=== PATIENT | female | born 1990 | race Caucasian/White ===

== ENCOUNTER 2016-07-14 18:20 | Inpatient (IN) | payer MEDICAID ==
[2016-07-14] MEDS ORDERED: ASPIRIN 81 MG TABLET, CHEWABLE PO ONE (18:24)
--- NOTE | 2016-07-14 18:26 | ER Document Report ---
ED Medical Screen (RME) - General Stated Complaint: CHEST PAIN Mode of Arrival: Ambulatory Information source: Patient Notes: Patient presents to the emergency department with left-sided chest pain since yesterday. Denies other symptoms such as fever vomiting diarrhea. Denies history of cardiac disease. Reports takes control no recent trip, denies trauma, reports smoked years ago. RR even/ unlabored. I have greeted and performed a rapid initial assessment of this patient. A comprehensive ED assessment and evaluation of the patient, analysis of test results and completion of the medical decision making process will be conducted by additional ED providers.. TRAVEL OUTSIDE OF THE [place] IN LAST 30 DAYS: No - Related Data Allergies/Adverse Reactions: No Known Drug Allergies Allergy (Verified 05/15/12 10:13) Past Medical History Pulmonary Medical History: Denies: Hx Asthma Past Surgical History: Reports: Hx Cholecystectomy, Hx Tonsillectomy, Hx Tubal Ligation - Immunizations Immunizations up to date: Yes Hx Diphtheria, Pertussis, Tetanus Vaccination: Yes
--- NOTE | 2016-07-14 19:59 | EKG REPORT ---
SEVERITY:- OTHERWISE NORMAL ECG - SINUS RHYTHM BORDERLINE LEFT AXIS DEVIATION : Confirmed by: Silvestre Estrella MD 14-Jul-2016 19:58:17
--- NOTE | 2016-07-14 23:16 | ER Document Report ---
ED General - General Chief Complaint: Chest Pain Stated Complaint: CHEST PAIN Mode of Arrival: Ambulatory Information source: Patient Notes: This is a 26-year-old female who presents to the ER for evaluation of left- sided chest pain that developed yesterday at rest. She states that the pain as a dull ache in the left anterior chest. There is no radiation of the pain. She has had no diaphoresis, nausea, or vomiting. She does have some pleuritic component to the pain along with some shortness of breath. She also states that it hurts to move certain ways. She denies cough or congestion or recent illness. No recent trauma. No prior history of similar symptoms. She has had no lower extremity edema or pain. She does take oral contraceptives. TRAVEL OUTSIDE OF THE [place] IN LAST 30 DAYS: No - Related Data Allergies/Adverse Reactions: No Known Drug Allergies Allergy (Verified 07/14/16 18:25) Home Medications: Current Home Medications Unobtainable [Unobtainable] 07/15/16 [History] Past Medical History - General Information source: Patient - Social History Smoking Status: Never Smoker Chew tobacco use (# tins/day): No Frequency of alcohol use: None Drug Abuse: None Family History: Reviewed & Not Pertinent Patient has suicidal ideation: No Patient has homicidal ideation: No - Past Medical History Cardiac Medical History: Reports: Hx Hypercholesterolemia Pulmonary Medical History: Denies: Hx Asthma Endocrine Medical History: Reports: Hx Hyperthyroidism Renal/ Medical History: Denies: Hx Peritoneal Dialysis Psychiatric Medical History: Reports: Hx Anxiety, Hx Depression Past Surgical History: Reports: Hx Cholecystectomy, Hx Tonsillectomy, Hx Tubal Ligation - Immunizations Immunizations up to date: Yes Hx Diphtheria, Pertussis, Tetanus Vaccination: Yes Review of Systems - Review of Systems Notes: REVIEW OF SYSTEMS: CONSTITUTIONAL : Denies fever, chills, or sweats. Denies recent illness. EENT: Denies eye, ear, throat, or mouth pain or symptoms. Denies nasal or sinus congestion. CARDIOVASCULAR: As per history of present illness RESPIRATORY: Denies cough, cold, or chest congestion. Otherwise as per history of present illness GASTROINTESTINAL: Denies abdominal pain. Denies nausea, vomiting, or diarrhea. GENITOURINARY: Denies difficulty urinating, painful urination, burning, frequency, or blood in urine. FEMALE GENITOURINARY: Denies vaginal bleeding, abnormal or irregular periods. LMP: beginning of June MUSCULOSKELETAL: Denies neck or back pain or joint pain or swelling. SKIN: Denies rash or skin lesions. HEMATOLOGIC : Denies easy bruising or bleeding. LYMPHATIC: Denies swollen, enlarged glands. NEUROLOGICAL: Denies altered mental status or loss of consciousness. Denies headache. PSYCHIATRIC: Denies anxiety or stress or depression. ALL OTHER SYSTEMS REVIEWED AND NEGATIVE. Physical Exam - Vital signs Vitals: Temp Pulse Resp BP Pulse Ox 98.3 F 105 H 20 134/81 H 100 07/14/16 18:25 07/14/16 18:25 07/14/16 18:25 07/14/16 18:25 07/14/16 18:25 - Notes Notes: PHYSICAL EXAMINATION: GENERAL: Well-appearing, well-nourished and in no acute distress. Pleasant and conversant with no conversational dyspnea. HEAD: Atraumatic, normocephalic. EYES: Pupils equal round and reactive to light, extraocular movements intact, sclera anicteric, conjunctiva are normal. ENT: nares patent, oropharynx clear without exudates. Moist mucous membranes. NECK: Normal range of motion, supple without lymphadenopathy LUNGS: Breath sounds clear to auscultation bilaterally and equal. No wheezes rales or rhonchi. HEART: Regular rate and rhythm without murmurs CHEST: Mild left anterior chest wall TTP ABDOMEN: Soft, nontender, normoactive bowel sounds. No guarding, no rebound. No masses appreciated. EXTREMITIES: Normal range of motion, no pitting or edema. No cyanosis. NEUROLOGICAL: Cranial nerves grossly intact. Normal speech. No gross focal motor or sensory deficits appreciated. PSYCH: Normal mood, normal affect. SKIN: Warm, Dry, normal turgor, no rashes or lesions noted. Course - Re-evaluation Re-evalutation: 07/15/16 02:20 CT angiogram demonstrates bilateral acute pulmonary emboli in the upper and lower lobes. Also there is evidence of lingula infarct. Patient will be started on heparin protocol. I did page the hospitalist Dr. Johnson for admission at this time. 07/15/16 02:43 Patient is a primary care patient of Dr. Lo. I discussed the case with Dr. Lo who will admit the patient to telemetry. - Vital Signs Vital signs: Temp Pulse Resp BP Pulse Ox 98.3 F 94 15 110/72 97 07/14/16 18:25 07/15/16 03:51 07/15/16 06:01 07/15/16 06:01 07/15/16 06:01 - Laboratory Result Diagrams: 07/15/16 03:45 07/14/16 23:32 Laboratory results interpreted by me: 07/14/16 07/14/16 07/15/16 23:32 23:32 02:10 D-Dimer 1.51 H ALT 60 H Urine Protein 30 H Urine Glucose (UA) 50 H Urine Blood MODERATE H Ur Leukocyte Esterase SMALL H - EKG Interpretation by Me Additional EKG results interpreted by me: 07/14/16 23:16 EKG at 1836 shows normal sinus rhythm with a rate of 97. There are nonspecific T-wave changes. Borderline left axis deviation. There are no ST segment elevation or depressions. Critical Care Note - Critical Care Note Total time excluding time spent on procedures (mins): 30 - minutes of critical care time spent in direct contact evaluating and reevaluating the patient, treating symptoms, reviewing labs and studies and speaking with family and consultants excluding any procedures Discharge - Discharge Clinical Impression: Bilateral pulmonary embolism, Pulmonary infarction Condition: Stable Disposition: ADMITTED INPATIENT Admitting Provider: [facility] Unit Admitted: [facility]
[2016-07-14 23:58] LABS: ABSOLUTE EOSINOPHILS # (AUTO) 0.1 10^3/uL (0.0-0.6); ABSOLUTE LYMPHOCYTES (AUTO) 1.8 10^3/uL (0.5-4.7); ABSOLUTE MONOCYTES (AUTO) 0.7 10^3/uL (0.1-1.4); BASOPHILS % (AUTO) 0.1 % (0-2); EOSINOPHILS % (AUTO) 1.6 % (0-6); HEMATOCRIT 37.4 % (36.0-47.0); HGB HCT DIFFERENCE 1.6; LYMPHOCYTES % (AUTO) 27.3 % (13-45); MEAN CORPUSCULAR HEMOGLOBIN 32.9 pg (27.0-33.4); MEAN CORPUSCULAR HGB CONC 34.9 g/dL (32.0-36.0); MEAN CORPUSCULAR VOLUME 94 fl (80-97); MONOCYTES % (AUTO) 9.9 % (3-13); RED BLOOD COUNT 3.96 10^6/uL (3.72-5.28); RED CELL DISTRIBUTION WIDTH 12.1 % (11.5-14.0); SEGMENTED NEUTROPHILS % (AUTO) 61.1 % (42-78); WHITE BLOOD COUNT 6.6 10^3/uL (4.0-10.5)
[2016-07-15 00:17] LABS: ALANINE AMINOTRANSFERASE 60 U/L (9-52); ALBUMIN 4.5 g/dL (3.5-5.0); ALKALINE PHOSPHATASE 43 U/L (38-126); ANION GAP 13 (5-19); ASPARTATE AMINO TRANSFERASE 36 U/L (14-36); BILIRUBIN,DIRECT 0.3 mg/dL (0.0-0.4); BILIRUBIN,TOTAL 1.2 mg/dL (0.2-1.3); BLOOD UREA NITROGEN 10 mg/dL (7-20); CALCIUM 9.7 mg/dL (8.4-10.2); CARBON DIOXIDE 26 mmol/L (22-30); CHLORIDE 103 mmol/L (98-107); CREATINE KINASE 105 U/L (30-135); CREATININE RESULT 0.65 mg/dL (0.52-1.25); GLUCOSE 95 mg/dL (75-110); POTASSIUM 3.9 mmol/L (3.6-5.0); SODIUM 142.2 mmol/L (137-145)
[2016-07-15 00:18] LABS: PROTHROMBIN TIME 13.5 SEC (11.4-15.4)
[2016-07-15 00:21] LABS: D-DIMER 1.51 ug/mL (0.00-0.50)
[2016-07-15 00:29] LABS: CREATINE KINASE MB 0.66 ng/mL (<4.55)
[2016-07-15 00:32] LABS: TROPONIN I < 0.012 ng/mL
[2016-07-15] MEDS ORDERED: HEPARIN SOD (PORCINE) 1,000 UNIT/ML 10 ML VIAL IV ONE (02:12)
[2016-07-15] MEDS ORDERED: HEPARIN SOD (PORCINE) 1,000 UNIT/ML 10 ML VIAL IV PRN (02:12)
[2016-07-15 03:18] LABS: APPEARANCE,URINE SLIGHTLY-CLOUDY; BILIRUBIN,URINE NEGATIVE (NEGATIVE); GLUCOSE, URINE 50 mg/dL (NEGATIVE); KETONES,URINE NEGATIVE (NEGATIVE); LEUKOCYTE ESTERASE,URINE SMALL (NEGATIVE); NITRITE,URINE NEGATIVE (NEGATIVE); PROTEIN,URINE 30 mg/dL (NEGATIVE); URINE SPECIFIC GRAVITY 1.011; UROBILINOGEN,URINE NEGATIVE mg/dL (<2.0)
[2016-07-15] MEDS: HEPARIN SODIUM,PORCINE/D5W 250 ML IV PRN ×2 (03:20→19:05)
[2016-07-15 03:55] LABS: ABSOLUTE EOSINOPHILS # (AUTO) 0.1 10^3/uL (0.0-0.6); ABSOLUTE LYMPHOCYTES (AUTO) 1.7 10^3/uL (0.5-4.7); ABSOLUTE MONOCYTES (AUTO) 0.6 10^3/uL (0.1-1.4); ABSOLUTE NEUT (AUTO) 4.8 10^3/uL (1.7-8.2); BASOPHILS % (AUTO) 0.3 % (0-2); EOSINOPHILS % (AUTO) 1.8 % (0-6); HEMATOCRIT 35.8 % (36.0-47.0); HEMOGLOBIN 12.8 g/dL (12.0-15.5); HGB HCT DIFFERENCE 2.6; LYMPHOCYTES % (AUTO) 22.6 % (13-45); MEAN CORPUSCULAR HGB CONC 35.7 g/dL (32.0-36.0); MEAN CORPUSCULAR VOLUME 93 fl (80-97); MONOCYTES % (AUTO) 8.7 % (3-13); RED BLOOD COUNT 3.87 10^6/uL (3.72-5.28); SEGMENTED NEUTROPHILS % (AUTO) 66.6 % (42-78); WHITE BLOOD COUNT 7.3 10^3/uL (4.0-10.5)
[2016-07-15 05:09] LABS: PARTIAL THROMBOPLASTIN TIME > 235.0 SEC (23.5-35.8)
[2016-07-15] MEDS ORDERED: LORAZEPAM INJ 2 MG/1 ML VIAL IV ONE (05:09)
[2016-07-15] MEDS ORDERED: ACETAMINOPHEN 325 MG TABLET PO PRN (07:02)
[2016-07-15] MEDS ORDERED: ENOXAPARIN SODIUM INJ 30 MG/0.3 ML DISP.SYRIN SUBCUT SCH (08:00)
[2016-07-15] MEDS ORDERED: OXYCODONE-ACETAMINOPHEN 5-325 MG TABLET PO ONE (11:07)
--- NOTE | 2016-07-15 14:00 | PDOC H&P ---
History of Present Illness Admission Date/PCP: 07/15/16 07:02 ADALID SUAREZ MD Patient complains of: chest pain History of Present Illness: NUNU MIRELES is a 26 year old female pt came to er with c/o chest pain on left side and unable to take deep breath Past Medical History Cardiac Medical History: Reports: Hyperlipidema Pulmonary Medical History: Denies: Asthma Endocrine Medical History: Reports: Hypothyroidism Psychiatric Medical History: Reports: Depression, General Anxiety Disorder Past Surgical History Past Surgical History: Reports: Cholecystectomy, Tonsillectomy, Tubal Ligation Social History Smoking Status: Never Smoker Family History Family History: Reviewed & Not Pertinent Parental Family History Reviewed: Yes Children Family History Reviewed: Yes Sibling(s) Family History Reviewed.: Yes Medication/Allergy Home Medications: Unobtainable [Unobtainable] 07/15/16 Allergies/Adverse Reactions: No Known Drug Allergies Allergy (Verified 07/14/16 18:25) Review of Systems Constitutional: ABSENT: chills, fever(s), headache(s), weight gain, weight loss Eyes: ABSENT: visual disturbances Ears: ABSENT: hearing changes Cardiovascular: PRESENT: chest pain, dyspnea on exertion Respiratory: PRESENT: cough, dyspnea. ABSENT: hemoptysis Gastrointestinal: ABSENT: abdominal pain, constipation, diarrhea, hematemesis, hematochezia, nausea, vomiting Genitourinary: ABSENT: dysuria, hematuria Musculoskeletal: ABSENT: joint swelling Integumentary: ABSENT: rash, wounds Neurological: ABSENT: abnormal gait, abnormal speech, confusion, dizziness, focal weakness, syncope Psychiatric: ABSENT: anxiety, depression, homidical ideation, suicidal ideation Endocrine: ABSENT: cold intolerance, heat intolerance, menstrual abnormalities, polydipsia, polyuria Hematologic/Lymphatic: ABSENT: easy bleeding, easy bruising, lymphadenopathy Physical Exam Vital Signs: Temp Pulse Resp BP Pulse Ox 98.3 F 94 13 111/74 96 07/14/16 18:25 07/15/16 03:51 07/15/16 10:01 07/15/16 10:01 07/15/16 10:01 General appearance: PRESENT: no acute distress, well-developed, well-nourished Head exam: PRESENT: atraumatic, normocephalic Eye exam: PRESENT: conjunctiva pink, EOMI, PERRLA. ABSENT: scleral icterus Ear exam: PRESENT: normal external ear exam Mouth exam: PRESENT: moist, tongue midline Neck exam: PRESENT: full ROM. ABSENT: carotid bruit, JVD, lymphadenopathy, thyromegaly Respiratory exam: PRESENT: clear to auscultation pierre Cardiovascular exam: PRESENT: RRR. ABSENT: diastolic murmur, rubs, systolic murmur Pulses: PRESENT: normal dorsalis pedis pul, +2 pedal pulses bilateral Vascular exam: PRESENT: normal capillary refill GI/Abdominal exam: PRESENT: normal bowel sounds, soft. ABSENT: distended, guarding, mass, organolmegaly, rebound, tenderness Rectal exam: PRESENT: deferred Neurological exam: PRESENT: alert, awake, oriented to person, oriented to place , oriented to time, oriented to situation, CN II-XII grossly intact. ABSENT: motor sensory deficit Psychiatric exam: PRESENT: appropriate affect, normal mood. ABSENT: homicidal ideation, suicidal ideation Skin exam: PRESENT: dry, intact, warm. ABSENT: cyanosis, rash Results Impressions: Chest X-Ray 07/14/16 18:23 IMPRESSION: NO SIGNIFICANT RADIOGRAPHIC FINDING IN THE CHEST. Chest/Abdomen CTA 07/15/16 00:29 IMPRESSION: Acute pulmonary emboli in the bilateral upper and lower lobes. Pleura based wedge-shaped ground-glass opacity at the lingula, may represent a pulmonary infarct. Trace left pleural effusion. Mild bibasilar atelectasis. Assessment & Plan - Diagnosis (1) Bilateral pulmonary embolism Is this a current diagnosis for this admission?: YesPlan: start on heparin drip consult hematolgy for further evaution d/w pt and family on bed site possbile birthh control pill related (2) Pulmonary infarction Is this a current diagnosis for this admission?: YesPlan: will consult pulmonry cont heparin (3) Hyperlipemia Qualifiers: Hyperlipidemia type: unspecified Qualified Code(s): E78.5 - Hyperlipidemia, unspecified Is this a current diagnosis for this admission?: YesPlan: stable (4) Hypothyroidism Qualifiers: Hypothyroidism type: unspecified Qualified Code(s): E03.9 - Hypothyroidism, unspecified Is this a current diagnosis for this admission?: YesPlan: cont curr med (5) Depression Qualifiers: Depression Type: unspecified Qualified Code(s): F32.9 - Major depressive disorder, single episode, unspecified Is this a current diagnosis for this admission?: YesPlan: pt see psych for that (6) Menses, irregular Is this a current diagnosis for this admission?: YesPlan: pt also see professional poker player for that stop control now - Time Time Spent: 50 to 70 Minutes Medications reviewed and adjusted accordingly: Yes Anticipated discharge: Home Within: Other - Inpatient Certification Medical Necessity: Need Close Monitoring Due to Risk of Patient Decompensation, Need For Continuous Telemetry Monitoring Post Hospital Care: D/C Rpg Programmer Documentation - Plan Summary Plan Summary: start heparin drip/pain med consult hemtolgy/pulmonary
--- NOTE | 2016-07-15 14:44 | PDOC CONSULTATION ---
Consultation Consult Date: 07/15/16 Attending physician:: ADALID SUAREZ Consult reason:: pulmonary emboli History of Present Illness Admission Date/PCP: 07/15/16 07:02 ADALID SUAREZ MD History of Present Illness: NUNU MIRELES is a 26 year old female 26-year-old female plans increasing shortness of breath and inspiratory chest pain for the last 2 days presented to the emergency room had a CTA that showed pulmonary emboli. She admits that 2 weeks ago she has swelling in her right calf. She states that at her baseline she is and has noticed shortness of breath no dips and exertion and rarely coughs she has not had any hemoptysis or PPD status is negative dates unknown she has had no history of chronic lung disease as a child or adolescent. She admits to passive smoke as a child and as an adult. she is herself has smoked pack a day for 3 years but has not smoked in last 7 years she denies any occupational exposure to potential respiratory toxins no pets no recent travel. She normally has no chest pain sleeps on 2-3 pillows no PND no nocturnal cough and no edema. Paraspinal she snores occasionally but is very mild she denies restless sleep nocturia unrestful sleep but admits to some daytime somnolence. Past Medical History Cardiac Medical History: Reports: Hyperlipidema Pulmonary Medical History: Denies: Asthma Endocrine Medical History: Reports: Hyperthyroidism Psychiatric Medical History: Reports: Depression Past Surgical History Past Surgical History: Reports: Cholecystectomy, Tonsillectomy, Tubal Ligation Social History Information Source: Patient Lives with: Family Smoking Status: Former Smoker Passive smoke exposure as: Both Hx Recreational Drug Use: No Hx Prescription Drug Abuse: No Do you have pets?: No Have you had any respiratory illnesses as a child?: No Have you been exposed to any sick contacts recently?: No Have you had any recent respiratory illnesses?: No Have you travelled outside of [place] in the past 12 months?: No Family History Family History: Reviewed & Not Pertinent Parental Family History Reviewed: Yes Children Family History Reviewed: Yes Sibling(s) Family History Reviewed.: Yes Medication/Allergy Home Medications: Clonazepam [Klonopin] 1 mg PO BIDP PRN 07/15/16 Fenofibrate [Lofibra] 54 mg PO DAILY 07/15/16 Levocetirizine Dihydrochloride [Xyzal 5 mg Tablet] 5 mg PO QHS 07/15/16 Levothyroxine Sodium [Synthroid 0.1 mg Tablet] 0.1 mg PO DAILY 07/15/16 Lurasidone HCl [Latuda] 80 mg PO DAILY 07/15/16 Spironolactone [Aldactone 25 mg Tablet] 12.5 mg PO BID 07/15/16 Topiramate [Topamax] 50 mg PO QHS 07/15/16 Allergies/Adverse Reactions: No Known Drug Allergies Allergy (Verified 07/14/16 18:25) Physical Exam Vital Signs: Temp Pulse Resp BP Pulse Ox 98.3 F 94 13 111/74 96 07/14/16 18:25 07/15/16 03:51 07/15/16 10:01 07/15/16 10:01 07/15/16 10:01 General appearance: PRESENT: no acute distress, disheveled, obese, well- developed, well-nourished Head exam: PRESENT: atraumatic, normocephalic Eye exam: PRESENT: conjunctiva pale, EOMI Mouth exam: PRESENT: dry mucosa, neck supple Neck exam: ABSENT: carotid bruit, JVD, lymphadenopathy, thyromegaly Respiratory exam: PRESENT: decreased breath sounds, rhonchi, symmetrical, unlabored Cardiovascular exam: PRESENT: RRR, +S1, +S2 Pulses: PRESENT: normal radial pulses GI/Abdominal exam: PRESENT: normal bowel sounds, soft. ABSENT: distended, guarding, mass, organolmegaly, rebound, tenderness Rectal exam: PRESENT: deferred Gentrourinary exam: PRESENT: indwelling catheter Musculoskeletal exam: PRESENT: normal inspection Neurological exam: PRESENT: alert, awake Psychiatric exam: PRESENT: normal mood Skin exam: PRESENT: dry, intact, warm Results Impressions: Chest X-Ray 07/14/16 18:23 IMPRESSION: NO SIGNIFICANT RADIOGRAPHIC FINDING IN THE CHEST. Chest/Abdomen CTA 07/15/16 00:29 IMPRESSION: Acute pulmonary emboli in the bilateral upper and lower lobes. Pleura based wedge-shaped ground-glass opacity at the lingula, may represent a pulmonary infarct. Trace left pleural effusion. Mild bibasilar atelectasis. Assessment & Plan - Diagnosis (1) Bilateral pulmonary embolism Is this a current diagnosis for this admission?: YesPlan: DVT from right lower extremity progress to PE (2) Depression Qualifiers: Depression Type: unspecified Qualified Code(s): F32.9 - Major depressive disorder, single episode, unspecified Is this a current diagnosis for this admission?: Yes (3) Hypothyroidism Qualifiers: Hypothyroidism type: unspecified Qualified Code(s): E03.9 - Hypothyroidism, unspecified Is this a current diagnosis for this admission?: Yes (4) Pulmonary infarction Is this a current diagnosis for this admission?: YesPlan: wedge base pleural defect inspiratory chest pain
[2016-07-15] MEDS: OXYCODONE-ACETAMINOPHEN 5-325 MG TABLET PO PRN ×2 (16:11→22:12)
[2016-07-16 07:59] LABS: PROTHROMBIN TIME 13.8 SEC (11.4-15.4)
[2016-07-16 08:01] LABS: PARTIAL THROMBOPLASTIN TIME 56.3 SEC (23.5-35.8)
[2016-07-16 08:09] LABS: ANION GAP 12 (5-19); BLOOD UREA NITROGEN 8 mg/dL (7-20); CALCIUM 9.2 mg/dL (8.4-10.2); CARBON DIOXIDE 26 mmol/L (22-30); CHLORIDE 105 mmol/L (98-107); CREATINE KINASE 41 U/L (30-135); CREATININE RESULT 0.68 mg/dL (0.52-1.25); GLUCOSE 93 mg/dL (75-110); POTASSIUM 4.2 mmol/L (3.6-5.0)
--- NOTE | 2016-07-16 08:28 | PDOC CONSULTATION ---
Consultation Consult Date: 07/16/16 Attending physician:: ADALID SUAREZ Consult reason:: DVT/PE History of Present Illness Admission Date/PCP: 07/15/16 07:02 ADALID SUAREZ MD Patient complains of: RLE pain/ SOB/ CP History of Present Illness: 26-year-old female with recent history of DVT/PE. She remembers about 1-2 weeks ago, she began having right lower extremity cramping, pain. Then on Friday she began having shortness of breath and chest pain and it worsened over 24 hours, ultimately she presented to the ED, she had a CTA of the chest which indicated bilateral PE as well as pulmonary infarct, she had a lower extremity ultrasound yesterday and this indicated a right lower extremity DVT. She is currently on a heparin drip. She doesn't smoke, but is exposed to a lot of secondhand smoke, she is on oral contraceptive for control of severe irregular menses secondary to polycystic ovarian disease. She is not had any recent surgeries or injuries. She has not had a recent . Past Medical History Cardiac Medical History: Reports: Hyperlipidema Pulmonary Medical History: Denies: Asthma Endocrine Medical History: Reports: Hypothyroidism Psychiatric Medical History: Reports: Depression, General Anxiety Disorder Past Surgical History Past Surgical History: Reports: Cholecystectomy, Tonsillectomy, Tubal Ligation Social History Lives with: Family Smoking Status: Former Smoker Number of Years Smokin Last Time Smoked: 2009 Frequency of Alcohol Use: Occasional Hx Recreational Drug Use: No Drugs: None Hx Prescription Drug Abuse: No Family History Family History: Reviewed & Not Pertinent Parental Family History Reviewed: Yes Children Family History Reviewed: Yes Sibling(s) Family History Reviewed.: Yes Medication/Allergy Home Medications: Clonazepam [Klonopin] 1 mg PO BIDP PRN 07/15/16 Fenofibrate [Lofibra] 54 mg PO DAILY 07/15/16 Levocetirizine Dihydrochloride [Xyzal 5 mg Tablet] 5 mg PO QHS 07/15/16 Levothyroxine Sodium [Synthroid 0.1 mg Tablet] 0.1 mg PO DAILY 07/15/16 Lurasidone HCl [Latuda] 80 mg PO DAILY 07/15/16 Spironolactone [Aldactone 25 mg Tablet] 12.5 mg PO BID 07/15/16 Topiramate [Topamax] 50 mg PO QHS 07/15/16 Allergies/Adverse Reactions: No Known Drug Allergies Allergy (Verified 07/14/16 18:25) Review of Systems Constitutional: PRESENT: fatigue, weakness Cardiovascular: PRESENT: chest pain, dyspnea on exertion Respiratory: PRESENT: dyspnea Gastrointestinal: ABSENT: abdominal pain, constipation, diarrhea, hematemesis, hematochezia, nausea, vomiting Musculoskeletal: ABSENT: joint swelling Neurological: ABSENT: abnormal gait, abnormal speech, confusion, dizziness, focal weakness, syncope Physical Exam Vital Signs: Temp Pulse Resp BP Pulse Ox 98.0 F 76 16 106/60 98 07/16/16 03:49 07/16/16 07:00 07/16/16 03:49 07/16/16 03:49 07/16/16 03:49 Intake & Output 07/15/16 07/16/16 07/17/16 06:59 06:59 06:59 Intake Total 336 Output Total 1050 Balance -714 Weight 95.2 kg General appearance: PRESENT: no acute distress, well-developed, well-nourished Head exam: PRESENT: atraumatic, normocephalic Eye exam: PRESENT: conjunctiva pink, EOMI, PERRLA. ABSENT: scleral icterus Ear exam: PRESENT: normal external ear exam Mouth exam: PRESENT: moist, tongue midline Neck exam: ABSENT: carotid bruit, JVD, lymphadenopathy, thyromegaly Respiratory exam: PRESENT: clear to auscultation pierre. ABSENT: rales, rhonchi, wheezes Cardiovascular exam: PRESENT: RRR. ABSENT: diastolic murmur, rubs, systolic murmur Pulses: PRESENT: normal dorsalis pedis pul Vascular exam: PRESENT: normal capillary refill GI/Abdominal exam: PRESENT: normal bowel sounds, soft. ABSENT: distended, guarding, mass, organolmegaly, rebound, tenderness Rectal exam: PRESENT: deferred Extremities exam: PRESENT: full ROM. ABSENT: calf tenderness, clubbing, pedal edema Neurological exam: PRESENT: alert, awake, oriented to person, oriented to place , oriented to time, oriented to situation, CN II-XII grossly intact. ABSENT: motor sensory deficit Psychiatric exam: PRESENT: appropriate affect, normal mood. ABSENT: homicidal ideation, suicidal ideation Skin exam: PRESENT: dry, intact, warm. ABSENT: cyanosis, rash Results Laboratory Results: 07/16/16 07:26 07/16/16 07:26 Sodium 143.0 Potassium 4.2 Chloride 105 Carbon Dioxide 26 Anion Gap 12 BUN 8 Creatinine 0.68 Est GFR ( Amer) > 60 Est GFR (Non-Af Amer) > 60 Glucose 93 Calcium 9.2 Magnesium 2.0 07/16/16 07:26 Creatine Kinase 41 Impressions: Chest X-Ray 07/14/16 18:23 IMPRESSION: NO SIGNIFICANT RADIOGRAPHIC FINDING IN THE CHEST. Chest/Abdomen CTA 07/15/16 00:29 IMPRESSION: Acute pulmonary emboli in the bilateral upper and lower lobes. Pleura based wedge-shaped ground-glass opacity at the lingula, may represent a pulmonary infarct. Trace left pleural effusion. Mild bibasilar atelectasis. Assessment & Plan - Diagnosis (1) Bilateral pulmonary embolism Is this a current diagnosis for this admission?: YesPlan: Unknown cause, idiopathic at present, could be related to oral contraceptive plus secondhand smoke, we will do an extended panel of hypercoagulable workup as an outpatient. But for now we would switch her from heparin drip to Lovenox. We will decide in the next 24 hours whether to switch to one of the newer oral anticoagulants or keep her on Lovenox. (2) Right femoral vein DVT Qualifiers: Chronicity: acute Qualified Code(s): I82.411 - Acute embolism and thrombosis of right femoral vein Is this a current diagnosis for this admission?: YesPlan: Right lower extremity DVT, treatment as above, we'll monitor closely. - Time Time Spent: Greater than 70 Minutes Critical Time spent with patient: 35 or more minutes Anticipated discharge: Home Within: within 72 hours - Inpatient Certification Based on my medical assessment, after consideration of the patient's comorbidities, presenting symptoms, or acuity I expect that the services needed warrant INPATIENT care.: Yes I certify that my determination is in accordance with my understanding of Medicare's requirements for reasonable and necessary INPATIENT services [42 CFR 412.3e].: Yes Medical Necessity: Failure to Improve With Outpatient Therapy, Need for Pain Control, Risk of Complication if Not Cared For in Hospital
[2016-07-16] MEDS: OXYCODONE-ACETAMINOPHEN 5-325 MG TABLET PO PRN (09:11)
--- NOTE | 2016-07-16 09:23 | PDOC PROGRESS REPORT ---
Subjective Progress Note for:: 07/16/16 Subjective:: Patient is doing much better patients denied any chest pain except when she took a deep breath. Patient's currently on a heparin drip as per discussed with the hematology change to the Lovenox therapy and DC the heparin drip Physical Exam Vital Signs: Temp Pulse Resp BP Pulse Ox 97.9 F 68 15 112/52 L 98 07/16/16 08:26 07/16/16 08:26 07/16/16 08:26 07/16/16 08:26 07/16/16 08:26 Intake & Output 07/15/16 07/16/16 07/17/16 06:59 06:59 06:59 Intake Total 336 Output Total 1050 Balance -714 Weight 95.2 kg General appearance: PRESENT: no acute distress, well-developed, well-nourished Head exam: PRESENT: atraumatic, normocephalic Eye exam: PRESENT: conjunctiva pink, EOMI, PERRLA. ABSENT: scleral icterus Ear exam: PRESENT: normal external ear exam Mouth exam: PRESENT: moist, tongue midline Neck exam: PRESENT: full ROM. ABSENT: carotid bruit, JVD, lymphadenopathy, thyromegaly Respiratory exam: PRESENT: clear to auscultation pierre Cardiovascular exam: PRESENT: RRR. ABSENT: diastolic murmur, rubs, systolic murmur Pulses: PRESENT: normal dorsalis pedis pul, +2 pedal pulses bilateral Vascular exam: PRESENT: normal capillary refill GI/Abdominal exam: PRESENT: normal bowel sounds, soft. ABSENT: distended, guarding, mass, organolmegaly, rebound, tenderness Rectal exam: PRESENT: deferred Neurological exam: PRESENT: alert, awake, oriented to person, oriented to place , oriented to time, oriented to situation, CN II-XII grossly intact. ABSENT: motor sensory deficit Psychiatric exam: PRESENT: appropriate affect, normal mood. ABSENT: homicidal ideation, suicidal ideation Skin exam: PRESENT: dry, intact, warm. ABSENT: cyanosis, rash Results Laboratory Results: 07/16/16 07:26 07/16/16 07:26 Sodium 143.0 Potassium 4.2 Chloride 105 Carbon Dioxide 26 Anion Gap 12 BUN 8 Creatinine 0.68 Est GFR ( Amer) > 60 Est GFR (Non-Af Amer) > 60 Glucose 93 Calcium 9.2 Magnesium 2.0 07/16/16 07:26 Creatine Kinase 41 Impressions: Chest X-Ray 07/14/16 18:23 IMPRESSION: NO SIGNIFICANT RADIOGRAPHIC FINDING IN THE CHEST. Chest/Abdomen CTA 07/15/16 00:29 IMPRESSION: Acute pulmonary emboli in the bilateral upper and lower lobes. Pleura based wedge-shaped ground-glass opacity at the lingula, may represent a pulmonary infarct. Trace left pleural effusion. Mild bibasilar atelectasis. Assessment & Plan - Diagnosis (1) Bilateral pulmonary embolism Is this a current diagnosis for this admission?: YesPlan: Start the Lovenox (2) Pulmonary infarction Is this a current diagnosis for this admission?: YesPlan: will consult pulmonry cont heparin (3) Hyperlipemia Qualifiers: Hyperlipidemia type: unspecified Qualified Code(s): E78.5 - Hyperlipidemia, unspecified Is this a current diagnosis for this admission?: YesPlan: stable (4) Hypothyroidism Qualifiers: Hypothyroidism type: unspecified Qualified Code(s): E03.9 - Hypothyroidism, unspecified Is this a current diagnosis for this admission?: YesPlan: cont curr med (5) Depression Qualifiers: Depression Type: unspecified Qualified Code(s): F32.9 - Major depressive disorder, single episode, unspecified Is this a current diagnosis for this admission?: YesPlan: pt see psych for that (6) Menses, irregular Is this a current diagnosis for this admission?: Yes - Time Time Spent with patient: 15-24 minutes Medications reviewed and adjusted accordingly: Yes Anticipated discharge: Home Within: Other - Inpatient Certification Medical Necessity: Need Close Monitoring Due to Risk of Patient Decompensation Post Hospital Care: D/C Division Order Analyst Documentation - Plan Summary Plan Summary: We will DC the heparin drip and start on the Lovenox therapy and continues to monitor discussed with the patient and the family in the room
[2016-07-16] MEDS: ENOXAPARIN SODIUM INJ 100 MG/1 ML DISP.SYRIN SUBCUT SCH ×2 (10:37→22:54)
--- NOTE | 2016-07-16 17:21 | PDOC PROGRESS REPORT ---
Subjective Progress Note for:: 07/16/16 Subjective:: WITHOUT COMPLAINTS Physical Exam Vital Signs: Temp Pulse Resp BP Pulse Ox 97.9 F 68 15 112/52 L 98 07/16/16 08:26 07/16/16 08:26 07/16/16 08:26 07/16/16 08:26 07/16/16 08:26 Intake & Output 07/15/16 07/16/16 07/17/16 06:59 06:59 06:59 Intake Total 336 Output Total 1050 Balance -714 Weight 95.2 kg General appearance: PRESENT: no acute distress, obese Head exam: PRESENT: atraumatic, normocephalic Eye exam: PRESENT: conjunctiva pale Mouth exam: PRESENT: moist, neck supple Neck exam: ABSENT: carotid bruit, JVD, lymphadenopathy, thyromegaly Respiratory exam: PRESENT: decreased breath sounds, stridor, unlabored Cardiovascular exam: PRESENT: RRR, +S1, +S2 Pulses: PRESENT: normal radial pulses GI/Abdominal exam: PRESENT: normal bowel sounds, soft. ABSENT: distended, guarding, mass, organolmegaly, rebound, tenderness Rectal exam: PRESENT: deferred Gentrourinary exam: PRESENT: indwelling catheter Musculoskeletal exam: PRESENT: normal inspection Neurological exam: PRESENT: alert, awake Psychiatric exam: PRESENT: normal mood Skin exam: PRESENT: dry, warm Results Laboratory Results: 07/16/16 07:26 07/16/16 07:26 Sodium 143.0 Potassium 4.2 Chloride 105 Carbon Dioxide 26 Anion Gap 12 BUN 8 Creatinine 0.68 Est GFR ( Amer) > 60 Est GFR (Non-Af Amer) > 60 Glucose 93 Calcium 9.2 Magnesium 2.0 07/16/16 07:26 Creatine Kinase 41 Impressions: Chest X-Ray 07/14/16 18:23 IMPRESSION: NO SIGNIFICANT RADIOGRAPHIC FINDING IN THE CHEST. Chest/Abdomen CTA 07/15/16 00:29 IMPRESSION: Acute pulmonary emboli in the bilateral upper and lower lobes. Pleura based wedge-shaped ground-glass opacity at the lingula, may represent a pulmonary infarct. Trace left pleural effusion. Mild bibasilar atelectasis. Assessment & Plan - Diagnosis (1) Bilateral pulmonary embolism Is this a current diagnosis for this admission?: Yes (2) Depression Qualifiers: Depression Type: unspecified Qualified Code(s): F32.9 - Major depressive disorder, single episode, unspecified Is this a current diagnosis for this admission?: Yes (3) Hypothyroidism Qualifiers: Hypothyroidism type: unspecified Qualified Code(s): E03.9 - Hypothyroidism, unspecified Is this a current diagnosis for this admission?: Yes (4) Pulmonary infarction Is this a current diagnosis for this admission?: Yes
[2016-07-16] MEDS: CLONAZEPAM 1 MG TABLET PO SCH (17:53)
[2016-07-16] MEDS: TOPIRAMATE 25 MG TABLET PO SCH (22:55)
[2016-07-17] MEDS: OXYCODONE-ACETAMINOPHEN 5-325 MG TABLET PO PRN ×2 (04:07→18:09)
[2016-07-17 06:55] LABS: HEMATOCRIT 34.5 % (36.0-47.0); HEMOGLOBIN 12.1 g/dL (12.0-15.5); HGB HCT DIFFERENCE 1.8; MEAN CORPUSCULAR HEMOGLOBIN 32.2 pg (27.0-33.4); MEAN CORPUSCULAR VOLUME 92 fl (80-97); RED BLOOD COUNT 3.75 10^6/uL (3.72-5.28); WHITE BLOOD COUNT 4.1 10^3/uL (4.0-10.5)
[2016-07-17 07:24] LABS: ANION GAP 13 (5-19); BLOOD UREA NITROGEN 8 mg/dL (7-20); CALCIUM 9.3 mg/dL (8.4-10.2); CARBON DIOXIDE 24 mmol/L (22-30); CHLORIDE 104 mmol/L (98-107); CREATININE RESULT 0.65 mg/dL (0.52-1.25); GLUCOSE 87 mg/dL (75-110); SODIUM 140.9 mmol/L (137-145)
[2016-07-17 07:49] LABS: POTASSIUM 4.5 mmol/L (3.6-5.0)
[2016-07-17] MEDS ORDERED: (PENDING PHARMACY ID) (Lurasidone Hcl [Latuda] 80 MG) PO SCH (10:00)
[2016-07-17] MEDS ORDERED: LURASIDONE HCL 80 MG PO SCH ×2 (10:00→22:00)
--- NOTE | 2016-07-17 10:05 | PDOC PROGRESS REPORT ---
Subjective Progress Note for:: 07/17/16 Subjective:: Patient is currently doing well denied any chest painDenied any shortness of the breathPatient is currently on Lovenox subcu Physical Exam Vital Signs: Temp Pulse Resp BP Pulse Ox 97.5 F 57 L 16 105/60 99 07/17/16 08:16 07/17/16 08:16 07/17/16 08:16 07/17/16 08:16 07/17/16 08:16 Intake & Output 07/16/16 07/17/16 07/18/16 06:59 06:59 06:59 Intake Total 336 2054 Output Total 1050 1225 Balance -714 829 Weight 95.2 kg 98.4 kg General appearance: PRESENT: no acute distress, well-developed, well-nourished Head exam: PRESENT: atraumatic, normocephalic Eye exam: PRESENT: conjunctiva pink, EOMI, PERRLA. ABSENT: scleral icterus Ear exam: PRESENT: normal external ear exam Mouth exam: PRESENT: moist, tongue midline Neck exam: PRESENT: full ROM. ABSENT: carotid bruit, JVD, lymphadenopathy, thyromegaly Respiratory exam: PRESENT: clear to auscultation pierre Cardiovascular exam: PRESENT: RRR. ABSENT: diastolic murmur, rubs, systolic murmur Pulses: PRESENT: normal dorsalis pedis pul, +2 pedal pulses bilateral Vascular exam: PRESENT: normal capillary refill GI/Abdominal exam: PRESENT: normal bowel sounds, soft. ABSENT: distended, guarding, mass, organolmegaly, rebound, tenderness Rectal exam: PRESENT: deferred Neurological exam: PRESENT: alert, awake, oriented to person, oriented to place , oriented to time, oriented to situation, CN II-XII grossly intact. ABSENT: motor sensory deficit Psychiatric exam: PRESENT: appropriate affect, normal mood. ABSENT: homicidal ideation, suicidal ideation Skin exam: PRESENT: dry, intact, warm. ABSENT: cyanosis, rash Results Laboratory Results: 07/17/16 06:21 07/17/16 06:21 07/17/16 07/17/16 06:21 06:21 WBC 4.1 RBC 3.75 Hgb 12.1 Hct 34.5 L MCV 92 MCH 32.2 MCHC 35.0 RDW 12.0 Plt Count 209 Sodium 140.9 Potassium 4.5 Chloride 104 Carbon Dioxide 24 Anion Gap 13 BUN 8 Creatinine 0.65 Est GFR ( Amer) > 60 Est GFR (Non-Af Amer) > 60 Glucose 87 Calcium 9.3 07/16/16 07:26 Creatine Kinase 41 Impressions: Chest X-Ray 07/14/16 18:23 IMPRESSION: NO SIGNIFICANT RADIOGRAPHIC FINDING IN THE CHEST. Chest/Abdomen CTA 07/15/16 00:29 IMPRESSION: Acute pulmonary emboli in the bilateral upper and lower lobes. Pleura based wedge-shaped ground-glass opacity at the lingula, may represent a pulmonary infarct. Trace left pleural effusion. Mild bibasilar atelectasis. Assessment & Plan - Diagnosis (1) Bilateral pulmonary embolism Is this a current diagnosis for this admission?: YesPlan: Start the Lovenox (2) Pulmonary infarction Is this a current diagnosis for this admission?: YesPlan: will consult pulmonry cont heparin (3) Hyperlipemia Qualifiers: Hyperlipidemia type: unspecified Qualified Code(s): E78.5 - Hyperlipidemia, unspecified Is this a current diagnosis for this admission?: YesPlan: stable (4) Hypothyroidism Qualifiers: Hypothyroidism type: unspecified Qualified Code(s): E03.9 - Hypothyroidism, unspecified Is this a current diagnosis for this admission?: YesPlan: cont curr med (5) Depression Qualifiers: Depression Type: unspecified Qualified Code(s): F32.9 - Major depressive disorder, single episode, unspecified Is this a current diagnosis for this admission?: YesPlan: pt see psych for that (6) Menses, irregular Is this a current diagnosis for this admission?: Yes - Time Time Spent with patient: 15-24 minutes Medications reviewed and adjusted accordingly: Yes Anticipated discharge: Home Within: Other - Inpatient Certification Medical Necessity: Need Close Monitoring Due to Risk of Patient Decompensation Post Hospital Care: D/C Rental Car Deliverer Documentation - Plan Summary Plan Summary: Continues to current medications
[2016-07-17] MEDS: LEVOTHYROXINE SODIUM 0.1 MG TABLET PO SCH (10:37)
[2016-07-17] MEDS: CLONAZEPAM 1 MG TABLET PO SCH ×2 (10:37→18:05)
[2016-07-17] MEDS: ENOXAPARIN SODIUM INJ 100 MG/1 ML DISP.SYRIN SUBCUT SCH ×2 (10:38→21:27)
[2016-07-17 15:53] LABS: APPEARANCE,URINE SLIGHTLY-CLOUDY; BILIRUBIN,URINE NEGATIVE (NEGATIVE); GLUCOSE, URINE NEGATIVE (NEGATIVE); KETONES,URINE NEGATIVE (NEGATIVE); LEUKOCYTE ESTERASE,URINE NEGATIVE (NEGATIVE); NITRITE,URINE NEGATIVE (NEGATIVE); PROTEIN,URINE 30 mg/dL (NEGATIVE); URINE SPECIFIC GRAVITY 1.009; UROBILINOGEN,URINE NEGATIVE mg/dL (<2.0)
[2016-07-17] MEDS: TOPIRAMATE 25 MG TABLET PO SCH (21:28)
[2016-07-18 06:49] LABS: ANION GAP 15 (5-19); BLOOD UREA NITROGEN 10 mg/dL (7-20); CARBON DIOXIDE 23 mmol/L (22-30); CHLORIDE 105 mmol/L (98-107); CREATININE RESULT 0.69 mg/dL (0.52-1.25); GLUCOSE 87 mg/dL (75-110); POTASSIUM 4.4 mmol/L (3.6-5.0); SODIUM 142.5 mmol/L (137-145)
--- NOTE | 2016-07-18 08:20 | PDOC PROGRESS REPORT ---
Subjective Progress Note for:: 07/18/16 Subjective:: Doing better, walked yesterday, was taught how to give herself lovenox Physical Exam Vital Signs: Temp Pulse Resp BP Pulse Ox 97.4 F 74 16 104/73 100 07/18/16 04:04 07/18/16 04:04 07/18/16 04:04 07/18/16 04:04 07/18/16 04:04 Intake & Output 07/17/16 07/18/16 07/19/16 06:59 06:59 06:59 Intake Total 2054 1260 Output Total 1225 2100 Balance 829 -840 Weight 98.4 kg 97.5 kg General appearance: PRESENT: no acute distress, well-developed, well-nourished Head exam: PRESENT: atraumatic, normocephalic Eye exam: PRESENT: conjunctiva pink, EOMI, PERRLA. ABSENT: scleral icterus Ear exam: PRESENT: normal external ear exam Mouth exam: PRESENT: moist, tongue midline Neck exam: ABSENT: carotid bruit, JVD, lymphadenopathy, thyromegaly Respiratory exam: PRESENT: clear to auscultation pierre. ABSENT: rales, rhonchi, wheezes Cardiovascular exam: PRESENT: RRR. ABSENT: diastolic murmur, rubs, systolic murmur Pulses: PRESENT: normal dorsalis pedis pul Vascular exam: PRESENT: normal capillary refill GI/Abdominal exam: PRESENT: normal bowel sounds, soft. ABSENT: distended, guarding, mass, organolmegaly, rebound, tenderness Rectal exam: PRESENT: deferred Extremities exam: PRESENT: full ROM. ABSENT: calf tenderness, clubbing, pedal edema Neurological exam: PRESENT: alert, awake, oriented to person, oriented to place , oriented to time, oriented to situation, CN II-XII grossly intact. ABSENT: motor sensory deficit Psychiatric exam: PRESENT: appropriate affect, normal mood. ABSENT: homicidal ideation, suicidal ideation Skin exam: PRESENT: dry, intact, warm. ABSENT: cyanosis, rash Results Laboratory Results: 07/17/16 06:21 07/18/16 05:44 07/17/16 07/17/16 07/18/16 09:00 11:52 05:44 Sodium 142.5 Potassium 4.4 Chloride 105 Carbon Dioxide 23 Anion Gap 15 BUN 10 Creatinine 0.69 Est GFR ( Amer) > 60 Est GFR (Non-Af Amer) > 60 Glucose 87 Calcium 10.0 Urine Color RED Urine Appearance SLIGHTLY-CLOUDY Urine pH 9.0 Ur Specific [place] 1.009 Urine Protein 30 H Urine Glucose (UA) NEGATIVE Urine Ketones NEGATIVE Urine Blood LARGE H Urine Nitrite NEGATIVE Ur Leukocyte Esterase NEGATIVE Urine WBC (Auto) 3 Urine RBC (Auto) >182 Stool Occult Blood NEGATIVE 07/16/16 07:26 Creatine Kinase 41 Impressions: Chest X-Ray 07/14/16 18:23 IMPRESSION: NO SIGNIFICANT RADIOGRAPHIC FINDING IN THE CHEST. Chest/Abdomen CTA 07/15/16 00:29 IMPRESSION: Acute pulmonary emboli in the bilateral upper and lower lobes. Pleura based wedge-shaped ground-glass opacity at the lingula, may represent a pulmonary infarct. Trace left pleural effusion. Mild bibasilar atelectasis. Assessment & Plan - Diagnosis (1) Bilateral pulmonary embolism Is this a current diagnosis for this admission?: YesPlan: Con't lovenox, con't on d/c today, needs 2 wk supply, see me 2 weeks, likely start oral anticoag then. Hold BC for now. (2) Right femoral vein DVT Qualifiers: Chronicity: acute Qualified Code(s): I82.411 - Acute embolism and thrombosis of right femoral vein Is this a current diagnosis for this admission?: YesPlan: As above - Time Time Spent with patient: 25-34 minutes Critical Time spent with patient: 25-34 minutes Anticipated discharge: Home
[2016-07-18 08:47] VITALS: BP 106/64
[2016-07-18] MEDS: LEVOTHYROXINE SODIUM 0.1 MG TABLET PO SCH (09:59)
[2016-07-18] MEDS: CLONAZEPAM 1 MG TABLET PO SCH (10:00)
[2016-07-18] MEDS: ENOXAPARIN SODIUM INJ 100 MG/1 ML DISP.SYRIN SUBCUT SCH (10:03)
--- NOTE | 2016-07-18 13:30 | PDOC DISCHARGE SUMMARY ---
General - Admit/Disc Date/PCP Admission Date/Primary Care Provider: 07/15/16 07:02 ADALID SUAREZ MD Discharge Date: 07/18/16 - Discharge Diagnosis (1) Bilateral pulmonary embolism Is this a current diagnosis for this admission?: YesSummary: Currently stable keep in the Lovenox per hematology for 2 weeks and follow with him and switch to the oral medications. Very extensive discussed with the patient and her about the medications and the side effect and any bleeding precautions. (2) Pulmonary infarction Is this a current diagnosis for this admission?: YesSummary: Currently stable continues to current medications as needed pain medications will repeat the chest x-ray in 1 week (3) Hyperlipemia Is this a current diagnosis for this admission?: YesSummary: Continues the current medications (4) Hypothyroidism Is this a current diagnosis for this admission?: YesSummary: Continues to Synthroid (5) Depression Is this a current diagnosis for this admission?: YesSummary: Continues to current psych medication follow with the psychiatrist (6) Menses, irregular Is this a current diagnosis for this admission?: YesSummary: Currently hold the control pills and follow with the BOMB TECHNICIAN for further further alternate options - Additional Information Discharge Activity: Activity As Tolerated Home Medications: Clonazepam [Klonopin] 1 mg PO BIDP PRN 07/15/16 Fenofibrate [Lofibra] 54 mg PO DAILY 07/15/16 Levocetirizine Dihydrochloride [Xyzal 5 mg Tablet] 5 mg PO QHS 07/15/16 Levothyroxine Sodium [Synthroid 0.1 mg Tablet] 0.1 mg PO DAILY 07/15/16 Lurasidone HCl [Latuda] 80 mg PO DAILY 07/15/16 Topiramate [Topamax] 50 mg PO QHS 07/15/16 Enoxaparin Sodium [Lovenox Inj 100 mg/1 ml Disp.syrin] 90 mg SUBCUT Q12 #28 disp.syrin 07/18/16 Oxycodone HCl/Acetaminophen [Percocet 5-325 mg Tablet] 1 tab PO Q8 PRN #20 tablet 07/18/16 History of Present Illness History of Present Illness: NUNU MIRELES is a 26 year old female pt came to er with c/o chest pain on left side and unable to take deep breath Hospital Course Hospital Course: Is a 26-year-old female she presents in the emergency department with the shortness of the breath and patient was found bilateral pulmonary embolism and deep venous thrombosis in the leg patients at this point start on the Lovenox therapy and patient is currently doing very well. Dr. Ferris was also consulted and Dr. Cannon was also consulted and the patient otherwise remained stable. All Lovenox teaching was done in the hospital and the patient and her was comfortable to take the Lovenox at home's. All the pros and cons discussed with the patient about the Lovenox and follow with the bread baker in 2 weeks and switched to the p.o. medications. Physical Exam Vital Signs: Temp Pulse Resp BP Pulse Ox 97.1 F 63 16 106/64 100 07/18/16 08:59 07/18/16 08:59 07/18/16 08:59 07/18/16 08:59 07/18/16 08:59 Intake & Output 07/17/16 07/18/16 07/19/16 06:59 06:59 06:59 Intake Total 2054 1260 Output Total 1225 2100 Balance 829 -840 Weight 98.4 kg 97.5 kg General appearance: PRESENT: no acute distress, well-developed, well-nourished Head exam: PRESENT: atraumatic, normocephalic Eye exam: PRESENT: conjunctiva pink, EOMI, PERRLA. ABSENT: scleral icterus Ear exam: PRESENT: normal external ear exam Mouth exam: PRESENT: moist, tongue midline Neck exam: PRESENT: full ROM. ABSENT: carotid bruit, JVD, lymphadenopathy, thyromegaly Respiratory exam: PRESENT: clear to auscultation pierre Cardiovascular exam: PRESENT: RRR. ABSENT: diastolic murmur, rubs, systolic murmur Pulses: PRESENT: normal dorsalis pedis pul, +2 pedal pulses bilateral Vascular exam: PRESENT: normal capillary refill GI/Abdominal exam: PRESENT: normal bowel sounds, soft. ABSENT: distended, guarding, mass, organolmegaly, rebound, tenderness Rectal exam: PRESENT: deferred Neurological exam: PRESENT: alert, awake, oriented to person, oriented to place , oriented to time, oriented to situation, CN II-XII grossly intact. ABSENT: motor sensory deficit Psychiatric exam: PRESENT: appropriate affect, normal mood. ABSENT: homicidal ideation, suicidal ideation Skin exam: PRESENT: dry, intact, warm. ABSENT: cyanosis, rash Results Laboratory Results: 07/17/16 06:21 07/18/16 05:44 07/17/16 07/18/16 09:00 05:44 Sodium 142.5 Potassium 4.4 Chloride 105 Carbon Dioxide 23 Anion Gap 15 BUN 10 Creatinine 0.69 Est GFR ( Amer) > 60 Est GFR (Non-Af Amer) > 60 Glucose 87 Calcium 10.0 Urine Color RED Urine Appearance SLIGHTLY-CLOUDY Urine pH 9.0 Ur Specific [place] 1.009 Urine Protein 30 H Urine Glucose (UA) NEGATIVE Urine Ketones NEGATIVE Urine Blood LARGE H Urine Nitrite NEGATIVE Ur Leukocyte Esterase NEGATIVE Urine WBC (Auto) 3 Urine RBC (Auto) >182 07/16/16 07:26 Creatine Kinase 41 Impressions: Chest X-Ray 07/14/16 18:23 IMPRESSION: NO SIGNIFICANT RADIOGRAPHIC FINDING IN THE CHEST. Chest/Abdomen CTA 07/15/16 00:29 IMPRESSION: Acute pulmonary emboli in the bilateral upper and lower lobes. Pleura based wedge-shaped ground-glass opacity at the lingula, may represent a pulmonary infarct. Trace left pleural effusion. Mild bibasilar atelectasis. Plan Time Spent: Greater than 30 Minutes - Discussed with the patient and her about all the medications on discharge in the fall precautions and to watch for any bleeding and stop the control pills and a close follow-up. Will follow the patient in 1 week in our office and follow with the 2 weeks with the bread baker
--- NOTE | 2016-07-22 11:37 | PDOC PROGRESS REPORT ---
Subjective Progress Note for:: 07/17/16 Subjective:: WITHOUT COMPLAINTS Physical Exam Vital Signs: Temp Pulse Resp BP Pulse Ox 97.5 F 57 L 16 105/60 99 07/17/16 08:16 07/17/16 08:16 07/17/16 08:16 07/17/16 08:16 07/17/16 08:16 Intake & Output 07/16/16 07/17/16 07/18/16 06:59 06:59 06:59 Intake Total 336 2054 Output Total 1050 1225 Balance -714 829 Weight 95.2 kg 98.4 kg General appearance: PRESENT: disheveled, obese Head exam: PRESENT: atraumatic, normocephalic Eye exam: PRESENT: conjunctiva pale Neck exam: ABSENT: carotid bruit, JVD, lymphadenopathy, thyromegaly Respiratory exam: PRESENT: decreased breath sounds, prolonged expiratory phas, rhonchi, symmetrical, unlabored, wheezes Cardiovascular exam: PRESENT: RRR, +S1, +S2 Pulses: PRESENT: normal radial pulses GI/Abdominal exam: PRESENT: normal bowel sounds, soft. ABSENT: distended, guarding, mass, organolmegaly, rebound, tenderness Rectal exam: PRESENT: deferred Musculoskeletal exam: PRESENT: normal inspection Neurological exam: PRESENT: awake Psychiatric exam: PRESENT: normal mood Skin exam: PRESENT: dry, warm Results Laboratory Results: 07/17/16 06:21 07/17/16 06:21 07/17/16 07/17/16 06:21 06:21 WBC 4.1 RBC 3.75 Hgb 12.1 Hct 34.5 L MCV 92 MCH 32.2 MCHC 35.0 RDW 12.0 Plt Count 209 Sodium 140.9 Potassium 4.5 Chloride 104 Carbon Dioxide 24 Anion Gap 13 BUN 8 Creatinine 0.65 Est GFR ( Amer) > 60 Est GFR (Non-Af Amer) > 60 Glucose 87 Calcium 9.3 07/16/16 07:26 Creatine Kinase 41 Impressions: Chest X-Ray 07/14/16 18:23 IMPRESSION: NO SIGNIFICANT RADIOGRAPHIC FINDING IN THE CHEST. Chest/Abdomen CTA 07/15/16 00:29 IMPRESSION: Acute pulmonary emboli in the bilateral upper and lower lobes. Pleura based wedge-shaped ground-glass opacity at the lingula, may represent a pulmonary infarct. Trace left pleural effusion. Mild bibasilar atelectasis. Assessment & Plan - Diagnosis (1) Bilateral pulmonary embolism Is this a current diagnosis for this admission?: Yes (2) Depression Qualifiers: Depression Type: unspecified Qualified Code(s): F32.9 - Major depressive disorder, single episode, unspecified Is this a current diagnosis for this admission?: Yes (3) Hypothyroidism Qualifiers: Hypothyroidism type: unspecified Qualified Code(s): E03.9 - Hypothyroidism, unspecified Is this a current diagnosis for this admission?: Yes (4) Pulmonary infarction Is this a current diagnosis for this admission?: Yes
--- NOTE | 2016-07-22 11:39 | PDOC PROGRESS REPORT ---
Subjective Progress Note for:: 07/18/16 Subjective:: WITHOUT COMPLAINTS Physical Exam Vital Signs: Temp Pulse Resp BP Pulse Ox 97.1 F 63 16 106/64 100 07/18/16 08:59 07/18/16 08:59 07/18/16 08:59 07/18/16 08:59 07/18/16 08:59 Intake & Output 07/17/16 07/18/16 07/19/16 06:59 06:59 06:59 Intake Total 2054 1260 Output Total 1225 2100 Balance 829 -840 Weight 98.4 kg 97.5 kg General appearance: PRESENT: no acute distress, disheveled, obese Head exam: PRESENT: atraumatic, normocephalic Eye exam: PRESENT: conjunctiva pale, EOMI Mouth exam: PRESENT: moist, neck supple Neck exam: ABSENT: carotid bruit, JVD, lymphadenopathy, thyromegaly Respiratory exam: PRESENT: decreased breath sounds, prolonged expiratory phas, rhonchi, symmetrical Cardiovascular exam: PRESENT: RRR, +S1, +S2 Pulses: PRESENT: normal radial pulses GI/Abdominal exam: PRESENT: normal bowel sounds, soft. ABSENT: distended, guarding, mass, organolmegaly, rebound, tenderness Rectal exam: PRESENT: deferred Musculoskeletal exam: PRESENT: normal inspection Neurological exam: PRESENT: awake Psychiatric exam: PRESENT: normal mood Skin exam: PRESENT: dry, warm Results Laboratory Results: 07/17/16 06:21 07/18/16 05:44 07/17/16 07/17/16 07/18/16 09:00 11:52 05:44 Sodium 142.5 Potassium 4.4 Chloride 105 Carbon Dioxide 23 Anion Gap 15 BUN 10 Creatinine 0.69 Est GFR ( Amer) > 60 Est GFR (Non-Af Amer) > 60 Glucose 87 Calcium 10.0 Urine Color RED Urine Appearance SLIGHTLY-CLOUDY Urine pH 9.0 Ur Specific [place] 1.009 Urine Protein 30 H Urine Glucose (UA) NEGATIVE Urine Ketones NEGATIVE Urine Blood LARGE H Urine Nitrite NEGATIVE Ur Leukocyte Esterase NEGATIVE Urine WBC (Auto) 3 Urine RBC (Auto) >182 Stool Occult Blood NEGATIVE 07/16/16 07:26 Creatine Kinase 41 Impressions: Chest X-Ray 07/14/16 18:23 IMPRESSION: NO SIGNIFICANT RADIOGRAPHIC FINDING IN THE CHEST. Chest/Abdomen CTA 07/15/16 00:29 IMPRESSION: Acute pulmonary emboli in the bilateral upper and lower lobes. Pleura based wedge-shaped ground-glass opacity at the lingula, may represent a pulmonary infarct. Trace left pleural effusion. Mild bibasilar atelectasis. Assessment & Plan - Diagnosis (1) Bilateral pulmonary embolism Is this a current diagnosis for this admission?: YesPlan: DVT from right lower extremity progress to PE (2) Depression Qualifiers: Depression Type: unspecified Qualified Code(s): F32.9 - Major depressive disorder, single episode, unspecified Is this a current diagnosis for this admission?: Yes (3) Hypothyroidism Qualifiers: Hypothyroidism type: unspecified Qualified Code(s): E03.9 - Hypothyroidism, unspecified Is this a current diagnosis for this admission?: Yes (4) Pulmonary infarction Is this a current diagnosis for this admission?: Yes
== END 2016-07-18 10:38 | disposition home health service (06) | DRG 176 ==
LOC: ER 18:20 → EH 07-15 03:02 → UNDOADMIN 07-15 03:02 → EH 07-15 07:02 → 4N 07-15 21:40
PROVIDERS: ADMIT Family Medicine; ATTEND Family Medicine
DX: I26.99 Other pulmonary embolism without acute cor pulmonale (principal); I82.411 Acute embolism and thrombosis of right femoral vein; E78.5 Hyperlipidemia, unspecified; E03.9 Hypothyroidism, unspecified; F32.9 Major depressive disorder, single episode, unspecified; N92.6 Irregular menstruation, unspecified; F41.1 Generalized anxiety disorder; Z90.49 Acquired absence of other specified parts of digestive tract; Z87.891 Personal history of nicotine dependence; Z79.899 Other long term (current) drug therapy
CPT/HCPCS: 36415; 71020; 71275; 80048; 80053; 81001; 82272; 82550; 82553; 83735; 84484; 84703; 85025; 85027; 85379; 85610; 85730; 93005; 93010; 93971; 99285; J1644; J1650; J2060; J3490

== ENCOUNTER 2016-12-08 09:58 | Emergency (ER) | payer MEDICAID ==
--- NOTE | 2016-12-08 10:13 | ER Document Report ---
ED General - General Chief Complaint: Leg Pain Stated Complaint: RIGHT LEG PAIN Time Seen by Provider: 12/08/16 10:05 Mode of Arrival: Wheelchair Information source: Patient Notes: 26-year-old female history of a DVT 5 months ago for unknown reason presents with complaints of cramping in the right calf of 2 day duration. Patient denies any chest pain no shortness of breath no difficulty breathing. Patient denies any swelling. Patient has been taking her Xarelto as prescribed TRAVEL OUTSIDE OF THE [place] IN LAST 30 DAYS: No - HPI Onset: Other - 2 days Onset/Duration: Sudden Quality of pain: Cramping Severity: Mild Pain Level: 1 Associated symptoms: Other Exacerbated by: Movement, Walking Relieved by: Denies Similar symptoms previously: Yes Recently seen / treated by doctor: Yes - Related Data Allergies/Adverse Reactions: No Known Drug Allergies Allergy (Verified 12/08/16 10:04) Past Medical History - Social History Smoking Status: Never Smoker Cigarette use (# per day): No Chew tobacco use (# tins/day): No Smoking Education Provided: No Frequency of alcohol use: Occasional Drug Abuse: None Family History: Reviewed & Not Pertinent - Past Medical History Cardiac Medical History: Reports: Hx Hypercholesterolemia Pulmonary Medical History: Denies: Hx Asthma Endocrine Medical History: Reports: Hx Hyperthyroidism, Hx Hypothyroidism Renal/ Medical History: Denies: Hx Peritoneal Dialysis Psychiatric Medical History: Reports: Hx Anxiety, Hx Depression Past Surgical History: Reports: Hx Cholecystectomy, Hx Tonsillectomy, Hx Tubal Ligation - Immunizations Immunizations up to date: Yes Hx Diphtheria, Pertussis, Tetanus Vaccination: No Review of Systems - Review of Systems Notes: REVIEW OF SYSTEMS: CONSTITUTIONAL : Denies fever, chills, or sweats. Denies recent illness. EENT: Denies eye, ear, throat, or mouth pain or symptoms. Denies nasal or sinus congestion or discharge. Denies throat, tongue, or mouth swelling or difficulty swallowing. CARDIOVASCULAR: Denies chest pain. Denies palpitations or racing or irregular heart beat. Denies ankle edema. RESPIRATORY: Denies cough, cold, or chest congestion. Denies shortness of breath, difficulty breathing, or wheezing. GASTROINTESTINAL: Denies abdominal pain or distention. Denies nausea, vomiting , or diarrhea. Denies blood in vomitus, stools, or per rectum. Denies black, tarry stools. Denies constipation. GENITOURINARY: Denies difficulty urinating, painful urination, burning, frequency, blood in urine, or discharge. FEMALE GENITOURINARY: Denies vaginal bleeding, heavy or abnormal periods, irregular periods. Denies vaginal discharge or odor. MUSCULOSKELETAL: Denies any swelling but admits to cramping in the right calf SKIN: Denies rash, lesions or sores. HEMATOLOGIC : Denies easy bruising or bleeding. LYMPHATIC: Denies swollen, enlarged glands. NEUROLOGICAL: Denies confusion or altered mental status. Denies passing out or loss of consciousness. Denies dizziness or lightheadedness. Denies headache. Denies weakness or paralysis or loss of use of either side. Denies problems with gait or speech. Denies sensory loss, numbness, or tingling. Denies seizures. PSYCHIATRIC: Denies anxiety or stress. Denies depression, suicidal ideation, or homicidal ideation. ALL OTHER SYSTEMS REVIEWED AND NEGATIVE. PHYSICAL EXAMINATION: GENERAL: Well-appearing, well-nourished and in no acute distress. HEAD: Atraumatic, normocephalic. EYES: Pupils equal round and reactive to light, extraocular movements intact, conjunctiva are normal. ENT: Nares patent, oropharynx clear without exudates. Moist mucous membranes. NECK: Normal range of motion, supple without lymphadenopathy LUNGS: Breath sounds clear to auscultation bilaterally and equal. No wheezes rales or rhonchi. HEART: Regular rate and rhythm without murmurs ABDOMEN: Soft, nontender, nondistended abdomen. No guarding, no rebound. No masses appreciated. Female : deferred Musculoskeletal: Normal range of motion, no pitting or edema. No cyanosis. NEUROLOGICAL: Cranial nerves grossly intact. Normal speech, normal gait. Normal sensory, motor exams PSYCH: Normal mood, normal affect. SKIN: Warm, Dry, normal turgor, no rashes or lesions noted. Dictation was performed using [employer] voice recognition software Physical Exam - Vital signs Vitals: Temp Pulse Resp BP Pulse Ox 98.4 F 63 18 133/77 H 100 12/08/16 10:01 12/08/16 10:01 12/08/16 10:01 12/08/16 10:01 12/08/16 10:01 Course - Re-evaluation Re-evalutation: 08/20/17 10:13 Physical examination noted no swelling, patient notes there is cramping in the right calf given her history a ultrasound is warranted 12/08/16 12:13 Ultrasound noted no acute abnormality labwork is stable patient will be discharged home as leg cramp and follow-up with her primary care physician on Friday per previous appointment, patient's been told to return immediately if she has any shortness breath difficulty breathing swelling or any other concerns After performing a Medical Screening Examination, I estimate there is LOW risk for ACUTE CORONARY SYNDROME, RESPIRATORY FAILURE, SEPSIS OR MENINGITIS, thus I consider the discharge disposition reasonable. I have reevaluated this patient multiple times and no significant life threatening changes are noted. The patient and I have discussed the diagnosis and risks, and we agree with discharging home with close follow-up. We also discussed returning to the Emergency Department immediately if new or worsening symptoms occur. We have discussed the symptoms which are most concerning (e.g., changing or worsening pain, trouble swallowing or breathing, neck stiffness, fever) that necessitate immediate return. - Vital Signs Vital signs: Temp Pulse Resp BP Pulse Ox 98.4 F 63 18 133/77 H 100 12/08/16 10:01 12/08/16 10:01 12/08/16 10:01 12/08/16 10:01 12/08/16 10:01 - Laboratory Result Diagrams: 12/08/16 10:10 12/08/16 10:10 - Diagnostic Test Radiology reviewed: Image reviewed, Reports reviewed - no dvt Discharge - Discharge Clinical Impression: Leg cramp Leg pain Qualifiers: Laterality: right Qualified Code(s): M79.604 - Pain in right leg Condition: Stable Disposition: HOME, SELF-CARE Instructions: Leg Cramps ([facility]) Referrals: ADALID SUAREZ MD [Primary Care Provider] - Follow up in 3-5 days
[2016-12-08 10:29] LABS: ABSOLUTE EOSINOPHILS # (AUTO) 0.2 10^3/uL (0.0-0.6); ABSOLUTE LYMPHOCYTES (AUTO) 1.8 10^3/uL (0.5-4.7); ABSOLUTE MONOCYTES (AUTO) 0.3 10^3/uL (0.1-1.4); ABSOLUTE NEUT (AUTO) 2.2 10^3/uL (1.7-8.2); BASOPHILS % (AUTO) 0.6 % (0-2); EOSINOPHILS % (AUTO) 3.7 % (0-6); HEMATOCRIT 40.7 % (36.0-47.0); HEMOGLOBIN 14.3 g/dL (12.0-15.5); HGB HCT DIFFERENCE 2.2; LYMPHOCYTES % (AUTO) 40.4 % (13-45); MEAN CORPUSCULAR HEMOGLOBIN 33.3 pg (27.0-33.4); MEAN CORPUSCULAR HGB CONC 35.1 g/dL (32.0-36.0); MEAN CORPUSCULAR VOLUME 95 fl (80-97); MONOCYTES % (AUTO) 6.6 % (3-13); RED BLOOD COUNT 4.29 10^6/uL (3.72-5.28); RED CELL DISTRIBUTION WIDTH 12.5 % (11.5-14.0); SEGMENTED NEUTROPHILS % (AUTO) 48.7 % (42-78); WHITE BLOOD COUNT 4.5 10^3/uL (4.0-10.5)
[2016-12-08 10:40] LABS: ALANINE AMINOTRANSFERASE 35 U/L (9-52); ALBUMIN 4.6 g/dL (3.5-5.0); ALKALINE PHOSPHATASE 38 U/L (38-126); ANION GAP 11 (5-19); ASPARTATE AMINO TRANSFERASE 20 U/L (14-36); BILIRUBIN,DIRECT 0.3 mg/dL (0.0-0.4); BILIRUBIN,TOTAL 0.7 mg/dL (0.2-1.3); BLOOD UREA NITROGEN 12 mg/dL (7-20); CALCIUM 9.7 mg/dL (8.4-10.2); CARBON DIOXIDE 25 mmol/L (22-30); CHLORIDE 105 mmol/L (98-107); CREATININE RESULT 0.85 mg/dL (0.52-1.25); GLUCOSE 87 mg/dL (75-110); POTASSIUM 4.1 mmol/L (3.6-5.0); SODIUM 140.6 mmol/L (137-145); TOTAL PROTEIN 7.9 g/dL (6.3-8.2)
[2016-12-08 12:20] VITALS: BP 128/78
--- NOTE | 2016-12-08 12:34 | RADIOLOGY REPORT (SQ) ---
EXAM DESCRIPTION: VENOUS UNILATERAL LOWER COMPLETED DATE/TIME: 12/08/2016 12:22 pm REASON FOR STUDY: Right calf pain, hx of dvt COMPARISON: 07/15/2016 TECHNIQUE: Dynamic and static hennessy scale and color images acquired of the right leg venous system. S elected spectral images acquired with additional compression and augmentation maneuvers. The contrala teral common femoral vein and saphenofemoral junction were also imaged. Images stored on PACS. LIMITATIONS: None. FINDINGS: COMMON FEMORAL: Normal phasicity, compression and augmentation. No visualized echogenic ma terial on hennessy scale. No defects on color images. FEMORAL: Normal compression and augmentation. No visualized echogenic material on hennessy scale. No defe cts on color images. POPLITEAL: Normal compression, augmentation. No visualized echogenic material on hennessy scale. No defec ts on color images. CALF VESSELS: Normal compression, augmentation. No visualized echogenic material on hennessy scale. No de fects on color images. GSV and SSV: Normal compression, augmentation. No visualized echogenic material on hennessy scale. No def ects on color images. ANY DEEP VENOUS INSUFFICIENCY: Not evaluated. ANY EVIDENCE OF POPLITEAL CYST: No. OTHER: No other significant finding. CONTRALATERAL COMMON FEMORAL VEIN AND SAPHENOFEMORAL JUNCTION: Normal phasicity, compression and augmentation. No visualized echogenic material on hennessy scale. No de fects on color images. IMPRESSION: NO EVIDENCE DVT OR SVT IN THE RIGHT LEG. TECHNICAL DOCUMENTATION: JOB ID: [id number] [employer]- All Rights Reserved
== END 2016-12-08 12:20 | disposition home or self-care (01) ==
LOC: ER 09:58
DX: R25.2 Cramp and spasm (principal); M79.604 Pain in right leg
CPT/HCPCS: 36415; 80053; 85025; 93971; 99284